=== PATIENT | male | born 1965 | race Two or more races ===

== ENCOUNTER 2021-02-13 11:54 | Inpatient (IN) | payer OTHER ==
[2021-02-13 13:59] VITALS: BMI 24.7
[2021-02-13] MEDS ORDERED: MAGNESIUM CITRATE 300 ML BOTTLE PO PRN (15:09)
[2021-02-13] MEDS ORDERED: IBUPROFEN 400 MG TABLET (FP) PO PRN (15:09)
[2021-02-13] MEDS ORDERED: NALOXONE HCL 0.4 MG/ML VIAL IM PRN (15:09)
[2021-02-13] MEDS ORDERED: MAG HYDROX/AL HYDROX/SIMETH 30 ML UNIT-DOSE CUP PO PRN (15:09)
[2021-02-13] MEDS ORDERED: cloNIDine HCL 0.1 MG TABLET PO PRN (15:09)
[2021-02-13] MEDS ORDERED: METHOCARBAMOL 500 MG TABLET PO PRN (15:09)
[2021-02-13] MEDS ORDERED: MENTHOL/PHENOL 1 EACH UD MM PRN (15:09)
[2021-02-13] MEDS ORDERED: MAGNESIUM HYDROX 2400MG/30ML ORAL SUSPENSION 30 ML CUP PO PRN (15:09)
[2021-02-13] MEDS ORDERED: BISMUTH SUBSALICYLATE 524 MG/30 ML PO PRN (15:09)
[2021-02-13] MEDS ORDERED: ACETAMINOPHEN 325 MG TABLET (FP) PO PRN ×2 (15:09)
[2021-02-13] MEDS ORDERED: METHADONE HCL 10 MG TABLET (FOR DETOX USE ONLY) PO ONE (15:30)
[2021-02-13] MEDS: THIAMINE HCL 100 MG TABLET (FP) PO SCH (22:24)
[2021-02-13] MEDS: levETIRAcetam 500 MG TABLET (FP) PO SCH (22:24)
[2021-02-13] MEDS: MELATONIN 5 MG TABLETS PO SCH (22:24)
[2021-02-14] MEDS ORDERED: METHADONE HCL 10 MG TABLET (FOR DETOX USE ONLY) ONE (09:23)
[2021-02-14] MEDS ORDERED: METHADONE HCL 5 MG TABLET (FOR DETOX USE ONLY) ONE (09:23)
[2021-02-14] MEDS ORDERED: METHADONE (DETOX) 20 MG, METHADONE (DETOX) 5 MG PO ONE (10:00)
[2021-02-14 10:07] LABS: HEMATOCRIT 35.5 % (35.4-49); HEMOGLOBIN 11.5 GM/dL (11.7-16.9); MCH 29.6 pg (25.7-33.7); MCHC 32.4 g/dl (32.0-35.9); MEAN CELL VOLUME 91.3 fl (80-96); MEAN PLT VOLUME 8.3 fl (7.5-11.1); PLATELET COUNT 336 K/MM3 (134-434); RBC 3.89 M/mm3 (4.00-5.60); RDW 14.9 % (11.9-15.9); WHITE BLOOD COUNT 6.8 K/mm3 (4.0-10.0)
[2021-02-14] MEDS: PRENATAL VITAMINS W/ FOLIC ACID TABLET (FP) PO SCH (10:08)
[2021-02-14] MEDS: levETIRAcetam 500 MG TABLET (FP) PO SCH ×2 (10:08→22:16)
[2021-02-14 10:53] LABS: CALCIUM 8.8 mg/dL (8.5-10.1)
[2021-02-14 10:54] LABS: ALBUMIN 2.9 g/dl (3.4-5.0); BLOOD UREA NITROGEN 34.9 mg/dL (7-18)
[2021-02-14 10:57] LABS: CREATININE 1.7 mg/dL (0.55-1.3)
[2021-02-14 10:58] LABS: BILIRUBIN,TOTAL 0.3 mg/dL (0.2-1)
[2021-02-14 11:02] LABS: TOT PROT 6.2 g/dl (6.4-8.2)
[2021-02-14] MEDS: THIAMINE HCL 100 MG TABLET (FP) PO SCH (22:16)
[2021-02-14] MEDS: MELATONIN 5 MG TABLETS PO SCH (22:17)
[2021-02-15] MEDS ORDERED: METHADONE HCL 10 MG TABLET (FOR DETOX USE ONLY) PO ONE (10:00)
[2021-02-15] MEDS: levETIRAcetam 500 MG TABLET (FP) PO SCH ×2 (10:06→21:46)
[2021-02-15] MEDS: PRENATAL VITAMINS W/ FOLIC ACID TABLET (FP) PO SCH (10:06)
[2021-02-15 11:39] LABS: ALBUMIN 3.3 g/dl (3.4-5.0); BILIRUBIN,DIRECT 0.1 mg/dL (0.0-0.2)
[2021-02-15 11:43] LABS: TOT PROT 7.1 g/dl (6.4-8.2)
[2021-02-15 11:45] LABS: BILIRUBIN,TOTAL 0.3 mg/dL (0.2-1)
[2021-02-15] MEDS: MELATONIN 5 MG TABLETS PO SCH (21:46)
[2021-02-15] MEDS: THIAMINE HCL 100 MG TABLET (FP) PO SCH (21:46)
[2021-02-16] MEDS ORDERED: METHADONE HCL 5 MG TABLET (FOR DETOX USE ONLY) ONE (09:12)
[2021-02-16] MEDS ORDERED: METHADONE HCL 10 MG TABLET (FOR DETOX USE ONLY) ONE (09:13)
[2021-02-16] MEDS ORDERED: METHADONE (DETOX) 10 MG, METHADONE (DETOX) 5 MG PO ONE (10:00)
[2021-02-16] MEDS: PRENATAL VITAMINS W/ FOLIC ACID TABLET (FP) PO SCH (10:10)
[2021-02-16] MEDS: levETIRAcetam 500 MG TABLET (FP) PO SCH ×2 (10:11→22:06)
[2021-02-16] MEDS: THIAMINE HCL 100 MG TABLET (FP) PO SCH (22:06)
[2021-02-16] MEDS: MELATONIN 5 MG TABLETS PO SCH (22:07)
[2021-02-17] MEDS ORDERED: METHADONE HCL 10 MG TABLET (FOR DETOX USE ONLY) PO ONE (10:00)
[2021-02-17] MEDS: levETIRAcetam 500 MG TABLET (FP) PO SCH ×2 (10:01→21:46)
[2021-02-17] MEDS: PRENATAL VITAMINS W/ FOLIC ACID TABLET (FP) PO SCH (10:01)
[2021-02-17] MEDS ORDERED: MASKS NR ONE (18:40)
[2021-02-17] MEDS: THIAMINE HCL 100 MG TABLET (FP) PO SCH (21:46)
[2021-02-17] MEDS: MELATONIN 5 MG TABLETS PO SCH (21:46)
[2021-02-18] MEDS ORDERED: METHADONE HCL 5 MG TABLET (FOR DETOX USE ONLY) PO ONE (06:00)
[2021-02-18] MEDS: PRENATAL VITAMINS W/ FOLIC ACID TABLET (FP) PO SCH (09:00)
[2021-02-18] MEDS: levETIRAcetam 500 MG TABLET (FP) PO SCH (09:00)
[2021-02-18 09:08] VITALS: BP 135/71; PULSE 88; TEMP 97.1
== END 2021-02-18 08:58 | disposition home or self-care (01) | DRG 773 ==
LOC: YASAS 11:54 → Y6N 15:16
PROVIDERS: ADMIT Allergy & Immunology; ATTEND Allergy & Immunology
PROC: HZ2ZZZZ Detoxification Services for Substance Abuse Treatment (ICD-10-PCS; principal; 2021-02-13)
DX: F11.23 Opioid dependence with withdrawal (principal); G40.909 Epilepsy, unspecified, not intractable, without status epilepticus; Z87.891 Personal history of nicotine dependence; Z88.0 Allergy status to penicillin
CPT/HCPCS: 36415; 71045-TC-FY; 80053; 80076; 80177; 85027; 86780; 93005; 93010; C9803; J0735; U0003; U0005

== ENCOUNTER 2021-06-17 18:19 | Inpatient (IN) | payer OTHER ==
[2021-06-18 02:02] VITALS: BMI 24.3
[2021-06-18] MEDS ORDERED: NALOXONE HCL 0.4 MG/ML VIAL IM PRN (02:09)
[2021-06-18] MEDS ORDERED: IBUPROFEN 400 MG TABLET (FP) PO PRN (02:09)
[2021-06-18] MEDS ORDERED: MENTHOL/PHENOL 1 EACH UD MM PRN (02:09)
[2021-06-18] MEDS ORDERED: methaDONE HCL 10 MG TABLET (FOR DETOX USE ONLY) PO ONE ×2 (02:09→10:00)
[2021-06-18] MEDS ORDERED: MAGNESIUM HYDROX 2400MG/30ML ORAL SUSPENSION 30 ML CUP PO PRN (02:09)
[2021-06-18] MEDS ORDERED: BISMUTH SUBSALICYLATE 524 MG/30 ML PO PRN (02:09)
[2021-06-18] MEDS ORDERED: MAG HYDROX/AL HYDROX/SIMETH 30 ML UNIT-DOSE CUP PO PRN (02:09)
[2021-06-18] MEDS ORDERED: ACETAMINOPHEN 325 MG TABLET (FP) PO PRN ×2 (02:09)
[2021-06-18] MEDS ORDERED: MAGNESIUM CITRATE 300 ML BOTTLE PO PRN (02:09)
[2021-06-18] MEDS ORDERED: P-EPHED 60MG/TRIPROLIDI 2.5MG TABLET PO PRN (02:09)
[2021-06-18] MEDS ORDERED: NALOXONE (NARCAN) HCL 4 MG/0.1 ML SPRAY NS PRN (02:09)
[2021-06-18] MEDS ORDERED: guaiFENesin 200 MG/10 ML 10 ML UNIT-DOSE CUPS PO PRN (02:09)
[2021-06-18] MEDS ORDERED: cloNIDine HCL 0.1 MG TABLET PO PRN (02:09)
[2021-06-18] MEDS ORDERED: methaDONE HCL 10 MG TABLET (FOR DETOX USE ONLY) ONE ×2 (05:01→10:53)
[2021-06-18] MEDS: PRENATAL VITAMINS W/ FOLIC ACID TABLET (FP) PO SCH (10:57)
[2021-06-18] MEDS: MELATONIN 5 MG TABLETS PO SCH (22:51)
[2021-06-18] MEDS: THIAMINE HCL 100 MG TABLET (FP) PO SCH (22:51)
[2021-06-19] MEDS ORDERED: methaDONE HCL 10 MG TABLET (FOR DETOX USE ONLY) ONE (09:42)
[2021-06-19 10:32] LABS: ALBUMIN 2.8 g/dl (3.4-5.0); HEMATOCRIT 34.9 % (35.4-49); HEMOGLOBIN 11.4 GM/dL (11.7-16.9); MCH 29.5 pg (25.7-33.7); MCHC 32.7 g/dl (32.0-35.9); MEAN CELL VOLUME 90.2 fl (80-96); MEAN PLT VOLUME 8.4 fl (7.5-11.1); PLATELET COUNT 334 10^3/uL (134-434); RBC 3.87 M/mm3 (4.00-5.60); RDW 15.4 % (11.9-15.9); WHITE BLOOD COUNT 5.3 K/mm3 (4.0-10.0)
[2021-06-19 10:33] LABS: BLOOD UREA NITROGEN 32.4 mg/dL (7-18); CALCIUM 8.7 mg/dL (8.5-10.1)
[2021-06-19 10:37] LABS: CREATININE 1.3 mg/dL (0.55-1.3)
[2021-06-19 10:38] LABS: BILIRUBIN,TOTAL 0.5 mg/dL (0.2-1); TOT PROT 6.3 g/dl (6.4-8.2)
[2021-06-19] MEDS: PRENATAL VITAMINS W/ FOLIC ACID TABLET (FP) PO SCH (10:55)
[2021-06-19] MEDS: THIAMINE HCL 100 MG TABLET (FP) PO SCH (22:06)
[2021-06-19] MEDS: MELATONIN 5 MG TABLETS PO SCH (22:06)
[2021-06-20] MEDS ORDERED: methaDONE HCL 10 MG TABLET (FOR DETOX USE ONLY) PO ONE (10:00)
[2021-06-20] MEDS: PRENATAL VITAMINS W/ FOLIC ACID TABLET (FP) PO SCH (10:07)
[2021-06-20] MEDS: METHOCARBAMOL 500 MG TABLET PO PRN (10:07)
[2021-06-20] MEDS: CARBAMIDE PEROXIDE 6.5% OTIC 15 ML BOTTLE AU SCH ×2 (15:55→23:51)
[2021-06-20] MEDS: THIAMINE HCL 100 MG TABLET (FP) PO SCH (22:38)
[2021-06-20] MEDS: levETIRAcetam 500 MG TABLET (FP) PO SCH (22:38)
[2021-06-20] MEDS: MELATONIN 5 MG TABLETS PO SCH (22:38)
[2021-06-21] MEDS: METHOCARBAMOL 500 MG TABLET PO PRN ×2 (00:43→10:22)
[2021-06-21] MEDS ORDERED: methaDONE HCL 10 MG TABLET (FOR DETOX USE ONLY) ONE (10:04)
[2021-06-21] MEDS: PRENATAL VITAMINS W/ FOLIC ACID TABLET (FP) PO SCH (10:22)
[2021-06-21] MEDS: CARBAMIDE PEROXIDE 6.5% OTIC 15 ML BOTTLE AU SCH ×2 (10:22→23:25)
[2021-06-21] MEDS: levETIRAcetam 500 MG TABLET (FP) PO SCH ×2 (10:23→23:25)
[2021-06-21] MEDS: MELATONIN 5 MG TABLETS PO SCH (23:26)
[2021-06-21] MEDS: THIAMINE HCL 100 MG TABLET (FP) PO SCH (23:26)
[2021-06-22] MEDS ORDERED: methaDONE HCL 10 MG TABLET (FOR DETOX USE ONLY) PO ONE (10:00)
[2021-06-22] MEDS: METHOCARBAMOL 500 MG TABLET PO PRN (10:28)
[2021-06-22] MEDS: levETIRAcetam 500 MG TABLET (FP) PO SCH (10:28)
[2021-06-22] MEDS: PRENATAL VITAMINS W/ FOLIC ACID TABLET (FP) PO SCH (10:29)
[2021-06-22] MEDS: CARBAMIDE PEROXIDE 6.5% OTIC 15 ML BOTTLE AU SCH (10:31)
[2021-06-22 13:41] VITALS: BP 130/81; PULSE 66; TEMP 97.1
== END 2021-06-22 13:30 | disposition left against medical advice (07) | DRG 770 ==
LOC: YASAS 18:19 → Y3N 06-18 11:50
PROVIDERS: ADMIT Allergy & Immunology; ATTEND Allergy & Immunology
PROC: HZ2ZZZZ Detoxification Services for Substance Abuse Treatment (ICD-10-PCS; principal; 2021-06-18)
DX: F11.23 Opioid dependence with withdrawal (principal); F10.20 Alcohol dependence, uncomplicated; F14.20 Cocaine dependence, uncomplicated; F12.20 Cannabis dependence, uncomplicated; F17.210 Nicotine dependence, cigarettes, uncomplicated; F19.24 Other psychoactive substance dependence with psychoactive substance-induced mood disorder; G40.909 Epilepsy, unspecified, not intractable, without status epilepticus; H91.90 Unspecified hearing loss, unspecified ear; M54.89 Other dorsalgia; G89.29 Other chronic pain; Z56.0 Unemployment, unspecified; Z59.00 Homelessness unspecified; Z88.0 Allergy status to penicillin
CPT/HCPCS: 36415; 80053; 80177; 84132; 85027; 86780; C9803; U0003; U0005

== ENCOUNTER 2022-02-04 08:43 | Inpatient (IN) | payer OTHER ==
[2022-02-03 21:12] VITALS: BMI 24.7
[~2022-02-04 08:43] MED LIST: ACETAMINOPHEN 325 MG TABLET (FP) PO PRN; BENZOCAINE/MENTHOL (CHLORASEPTIC ) LOZENGE MM PRN; BISMUTH SUBSALICYLATE 524 MG/30 ML PO PRN; DICYCLOMINE HCL 10 MG CAPSULE PO PRN; LOPERAMIDE HCL 2 MG CAPSULE PO PRN; MAGNESIUM CITRATE 300 ML BOTTLE PO PRN; MAGNESIUM HYDROX 2400MG/30ML ORAL SUSPENSION 30 ML CUP PO PRN; NICOTINE 10 MG CARTRIDGE (INHALER) IH PRN; NICOTINE POLACRILEX 2 MG GUM BUC PRN; ONDANSETRON *ODT* 4 MG TABLET SL PRN
[2022-02-04] MEDS ORDERED: methaDONE HCL 10 MG TABLET (FOR DETOX USE ONLY) PO ONE (10:30)
[2022-02-04] MEDS: levETIRAcetam 500 MG TABLET (FP) PO SCH ×2 (11:52→22:13)
[2022-02-04] MEDS: PRENATAL VITAMINS W/ FOLIC ACID TABLET (FP) PO SCH (11:53)
[2022-02-04 13:44] LABS: HEMATOCRIT 30.3 % (35.4-49); HEMOGLOBIN 9.9 GM/dL (11.7-16.9); MCH 29.2 pg (25.7-33.7); MCHC 32.7 g/dl (32.0-35.9); MEAN CELL VOLUME 89.4 fl (80-96); MEAN PLT VOLUME 8.4 fl (7.5-11.1); PLATELET COUNT 332 10^3/uL (134-434); RBC 3.39 M/mm3 (4.00-5.60); RDW 16.4 % (11.9-15.9); WHITE BLOOD COUNT 4.7 K/mm3 (4.0-10.0)
[2022-02-04 13:55] LABS: CALCIUM 8.8 mg/dL (8.5-10.1)
[2022-02-04 13:59] LABS: CREATININE 2.6 mg/dL (0.55-1.3)
[2022-02-04 14:01] LABS: TOT PROT 6.1 g/dl (6.4-8.2)
[2022-02-04 14:11] LABS: BILIRUBIN,TOTAL 1.1 mg/dL (0.2-1)
[2022-02-04 15:19] LABS: BLOOD UREA NITROGEN 51.3 mg/dL (7-18)
[2022-02-04] MEDS: THIAMINE HCL 100 MG TABLET (FP) PO SCH (22:12)
[2022-02-04] MEDS: MELATONIN 5 MG TABLETS PO PRN (22:12)
[2022-02-04] MEDS: hydrOXYzine PAMOATE 25 MG CAPSULE (FP) PO PRN (22:12)
[2022-02-04] MEDS: ACETAMINOPHEN 325 MG TABLET (FP) PO PRN (22:14)
[2022-02-05] MEDS ORDERED: methaDONE HCL 10 MG TABLET (FOR DETOX USE ONLY) ONE (08:41)
[2022-02-05] MEDS: PRENATAL VITAMINS W/ FOLIC ACID TABLET (FP) PO SCH (10:16)
[2022-02-05] MEDS: levETIRAcetam 500 MG TABLET (FP) PO SCH ×2 (11:06→22:36)
[2022-02-05] MEDS: THIAMINE HCL 100 MG TABLET (FP) PO SCH (22:35)
[2022-02-05] MEDS: MELATONIN 5 MG TABLETS PO PRN (22:35)
[2022-02-05] MEDS: MAG HYDROX/AL HYDROX/SIMETH 30 ML UNIT-DOSE CUP PO PRN (22:37)
[2022-02-05] MEDS: METHOCARBAMOL 500 MG TABLET PO PRN (22:37)
[2022-02-06] MEDS ORDERED: methaDONE HCL 10 MG TABLET (FOR DETOX USE ONLY) PO ONE (10:00)
[2022-02-06] MEDS: hydrOXYzine PAMOATE 25 MG CAPSULE (FP) PO PRN ×2 (10:20→17:56)
[2022-02-06] MEDS: METHOCARBAMOL 500 MG TABLET PO PRN ×2 (10:20→17:57)
[2022-02-06] MEDS: levETIRAcetam 500 MG TABLET (FP) PO SCH ×2 (10:21→22:46)
[2022-02-06] MEDS: PRENATAL VITAMINS W/ FOLIC ACID TABLET (FP) PO SCH (10:29)
[2022-02-06 11:50] LABS: BLOOD UREA NITROGEN 47.5 mg/dL (7-18)
[2022-02-06 16:08] LABS: SARS-CoV-2 NAA Not Detected (Not Detected)
[2022-02-06] MEDS: THIAMINE HCL 100 MG TABLET (FP) PO SCH (22:46)
[2022-02-07] MEDS ORDERED: methaDONE HCL 10 MG TABLET (FOR DETOX USE ONLY) ONE (09:25)
[2022-02-07] MEDS: PRENATAL VITAMINS W/ FOLIC ACID TABLET (FP) PO SCH (10:34)
[2022-02-07] MEDS: levETIRAcetam 500 MG TABLET (FP) PO SCH ×2 (10:34→22:25)
[2022-02-07] MEDS: hydrOXYzine PAMOATE 25 MG CAPSULE (FP) PO PRN ×2 (10:34→22:25)
[2022-02-07] MEDS: METHOCARBAMOL 500 MG TABLET PO PRN ×2 (10:34→17:59)
[2022-02-07] MEDS: CLOTRIMAZOLE 1% CREAM TP SCH ×2 (13:20→22:32)
[2022-02-07] MEDS: MAG HYDROX/AL HYDROX/SIMETH 30 ML UNIT-DOSE CUP PO PRN (13:36)
[2022-02-07] MEDS: FERROUS SO4 325 MG TABLET (FP) PO SCH (17:59)
[2022-02-07] MEDS: THIAMINE HCL 100 MG TABLET (FP) PO SCH (22:25)
[2022-02-07] MEDS: MELATONIN 5 MG TABLETS PO PRN (22:25)
[2022-02-08] MEDS: hydrOXYzine PAMOATE 25 MG CAPSULE (FP) PO PRN ×3 (05:05→22:13)
[2022-02-08] MEDS: METHOCARBAMOL 500 MG TABLET PO PRN ×3 (05:06→17:40)
[2022-02-08] MEDS: ACETAMINOPHEN 325 MG TABLET (FP) PO PRN ×2 (05:07→20:59)
[2022-02-08] MEDS: FERROUS SO4 325 MG TABLET (FP) PO SCH ×3 (09:52→20:38)
[2022-02-08] MEDS ORDERED: methaDONE HCL 10 MG TABLET (FOR DETOX USE ONLY) PO ONE (10:00)
[2022-02-08] MEDS: levETIRAcetam 500 MG TABLET (FP) PO SCH ×2 (10:21→22:13)
[2022-02-08] MEDS: MULTIVITAMINS (DAILY MVI) TABLET (FP) PO SCH (10:22)
[2022-02-08] MEDS: CLOTRIMAZOLE 1% CREAM TP SCH ×2 (10:22→22:12)
[2022-02-08] MEDS: IBUPROFEN 400 MG TABLET (FP) PO PRN ×2 (13:11→22:13)
[2022-02-08] MEDS: MELATONIN 5 MG TABLETS PO PRN (22:12)
[2022-02-08] MEDS: THIAMINE HCL 100 MG TABLET (FP) PO SCH (23:41)
[2022-02-09] MEDS: IBUPROFEN 400 MG TABLET (FP) PO PRN (05:18)
[2022-02-09] MEDS: METHOCARBAMOL 500 MG TABLET PO PRN (05:18)
[2022-02-09] MEDS: hydrOXYzine PAMOATE 25 MG CAPSULE (FP) PO PRN (05:18)
[2022-02-09] MEDS: FERROUS SO4 325 MG TABLET (FP) PO SCH ×2 (07:26→13:21)
[2022-02-09] MEDS: ACETAMINOPHEN 325 MG TABLET (FP) PO PRN (09:06)
[2022-02-09] MEDS: levETIRAcetam 500 MG TABLET (FP) PO SCH (10:16)
[2022-02-09] MEDS: MULTIVITAMINS (DAILY MVI) TABLET (FP) PO SCH (10:16)
[2022-02-09] MEDS: CLOTRIMAZOLE 1% CREAM TP SCH (10:16)
[2022-02-09] MEDS ORDERED: LIDOCAINE 5% TOPICAL PATCH TP SCH (10:30)
[2022-02-09] MEDS ORDERED: amLODIPine BESYLATE 5 MG TABLET (FP) PO SCH (10:30)
[2022-02-09 13:02] VITALS: BP 149/96; PULSE 78; TEMP 97
[2022-02-09] MEDS ORDERED: LIDOCAINE PATCH REMOVAL MC SCH (22:00)
== END 2022-02-09 14:20 | disposition other institution (70) | DRG 773 ==
LOC: YASAS 08:43 → UNDOADMIN 09:50 → Y6N 09:50
PROVIDERS: ADMIT Allergy & Immunology; ATTEND Psychiatry & Neurology Psychiatry
PROC: HZ2ZZZZ Detoxification Services for Substance Abuse Treatment (ICD-10-PCS; principal; 2022-02-04)
DX: F11.23 Opioid dependence with withdrawal (principal); F14.20 Cocaine dependence, uncomplicated; F12.20 Cannabis dependence, uncomplicated; F19.24 Other psychoactive substance dependence with psychoactive substance-induced mood disorder; D50.9 Iron deficiency anemia, unspecified; G40.909 Epilepsy, unspecified, not intractable, without status epilepticus; I10 Essential (primary) hypertension; N28.9 Disorder of kidney and ureter, unspecified; M54.50 Low back pain, unspecified; G89.29 Other chronic pain; H90.0 Conductive hearing loss, bilateral; Z87.891 Personal history of nicotine dependence; Z88.0 Allergy status to penicillin
CPT/HCPCS: 36415; 80053; 80177; 82565; 82607; 82746; 83540; 83550; 84520; 85027; 86780; 87811; C9803-CS; U0003; U0005

== ENCOUNTER 2022-02-09 14:27 | Inpatient (IN) | payer OTHER ==
[2022-02-09] MEDS ORDERED: MAG HYDROX/AL HYDROX/SIMETH 30 ML UNIT-DOSE CUP PO PRN (15:08)
[2022-02-09] MEDS ORDERED: MAGNESIUM CITRATE 300 ML BOTTLE PO PRN (15:08)
[2022-02-09] MEDS ORDERED: guaiFENesin 200 MG/10 ML 10 ML UNIT-DOSE CUPS PO PRN (15:08)
[2022-02-09] MEDS ORDERED: hydrOXYzine PAMOATE 25 MG CAPSULE (FP) PO PRN (15:08)
[2022-02-09] MEDS ORDERED: MAGNESIUM HYDROX 2400MG/30ML ORAL SUSPENSION 30 ML CUP PO PRN (15:08)
[2022-02-09] MEDS ORDERED: LOPERAMIDE HCL 2 MG CAPSULE PO PRN (15:08)
[2022-02-09] MEDS ORDERED: P-EPHED 60MG/TRIPROLIDI 2.5MG TABLET PO PRN (15:08)
[2022-02-09] MEDS ORDERED: BENZOCAINE/MENTHOL (CHLORASEPTIC ) LOZENGE MM PRN (15:08)
[2022-02-09] MEDS ORDERED: NICOTINE 10 MG CARTRIDGE (INHALER) IH PRN (15:08)
[2022-02-09] MEDS: IBUPROFEN 400 MG TABLET (FP) PO PRN (15:40)
[2022-02-09] MEDS ORDERED: cloNIDine HCL 0.1 MG TABLET PO PRN (15:56)
[2022-02-09] MEDS ORDERED: METHOCARBAMOL 500 MG TABLET PO PRN (15:58)
[2022-02-09] MEDS ORDERED: cloNIDine HCL 0.1 MG TABLET PO ONE (16:00)
[2022-02-09] MEDS: levETIRAcetam 250 MG TABLET PO SCH (21:38)
[2022-02-09] MEDS: MELATONIN 5 MG TABLETS PO SCH (21:39)
[2022-02-09] MEDS: THIAMINE HCL 100 MG TABLET (FP) PO SCH (21:39)
[2022-02-10] MEDS: IBUPROFEN 400 MG TABLET (FP) PO PRN ×2 (01:27→20:30)
[2022-02-10] MEDS: ACETAMINOPHEN 325 MG TABLET (FP) PO PRN (06:04)
[2022-02-10] MEDS: PRENATAL VITAMINS W/ FOLIC ACID TABLET (FP) PO SCH (10:06)
[2022-02-10] MEDS: levETIRAcetam 250 MG TABLET PO SCH ×2 (10:06→21:09)
[2022-02-10] MEDS: NICOTINE 7 MG/24 HOURS TOPICAL PATCH TD SCH (10:07)
[2022-02-10] MEDS: LIDOCAINE 5% TOPICAL PATCH TP SCH (15:17)
[2022-02-10] MEDS: METHOCARBAMOL 750 MG TAB PO PRN (21:09)
[2022-02-10] MEDS: THIAMINE HCL 100 MG TABLET (FP) PO SCH (21:09)
[2022-02-10] MEDS: MELATONIN 5 MG TABLETS PO SCH (21:09)
[2022-02-10] MEDS: LIDOCAINE PATCH REMOVAL MC SCH (21:10)
[2022-02-10] MEDS: METHYL SALICYLATE/MENTHOL OINT 30 GM TUBE TP SCH (21:10)
[2022-02-11] MEDS: IBUPROFEN 400 MG TABLET (FP) PO PRN ×2 (03:36→21:17)
[2022-02-11] MEDS: PRENATAL VITAMINS W/ FOLIC ACID TABLET (FP) PO SCH (10:05)
[2022-02-11] MEDS: ACETAMINOPHEN 325 MG TABLET (FP) PO PRN (10:06)
[2022-02-11] MEDS: NICOTINE 7 MG/24 HOURS TOPICAL PATCH TD SCH (10:06)
[2022-02-11] MEDS: levETIRAcetam 250 MG TABLET PO SCH ×2 (10:06→21:16)
[2022-02-11] MEDS: LIDOCAINE 5% TOPICAL PATCH TP SCH (10:06)
[2022-02-11] MEDS: MELATONIN 5 MG TABLETS PO SCH (21:16)
[2022-02-11] MEDS: THIAMINE HCL 100 MG TABLET (FP) PO SCH (21:16)
[2022-02-12] MEDS: METHYL SALICYLATE/MENTHOL OINT 30 GM TUBE TP SCH ×2 (00:02→21:15)
[2022-02-12] MEDS: LIDOCAINE PATCH REMOVAL MC SCH ×2 (00:02→21:15)
[2022-02-12] MEDS: LIDOCAINE 5% TOPICAL PATCH TP SCH (10:09)
[2022-02-12] MEDS: levETIRAcetam 250 MG TABLET PO SCH ×2 (10:09→21:14)
[2022-02-12] MEDS: NICOTINE 7 MG/24 HOURS TOPICAL PATCH TD SCH (10:09)
[2022-02-12] MEDS: PRENATAL VITAMINS W/ FOLIC ACID TABLET (FP) PO SCH (10:09)
[2022-02-12] MEDS: THIAMINE HCL 100 MG TABLET (FP) PO SCH (21:14)
[2022-02-12] MEDS: MELATONIN 5 MG TABLETS PO SCH (21:14)
[2022-02-13] MEDS: levETIRAcetam 250 MG TABLET PO SCH ×2 (10:13→21:27)
[2022-02-13] MEDS: PRENATAL VITAMINS W/ FOLIC ACID TABLET (FP) PO SCH (10:13)
[2022-02-13] MEDS: LIDOCAINE 5% TOPICAL PATCH TP SCH (10:14)
[2022-02-13] MEDS: NICOTINE 7 MG/24 HOURS TOPICAL PATCH TD SCH (10:14)
[2022-02-13] MEDS: METHYL SALICYLATE/MENTHOL OINT 30 GM TUBE TP SCH (21:26)
[2022-02-13] MEDS: MELATONIN 5 MG TABLETS PO SCH (21:26)
[2022-02-13] MEDS: LIDOCAINE PATCH REMOVAL MC SCH (21:27)
[2022-02-13] MEDS: THIAMINE HCL 100 MG TABLET (FP) PO SCH (21:27)
[2022-02-13] MEDS: METHOCARBAMOL 750 MG TAB PO PRN (21:28)
[2022-02-14] MEDS: NICOTINE 7 MG/24 HOURS TOPICAL PATCH TD SCH (10:03)
[2022-02-14] MEDS: LIDOCAINE 5% TOPICAL PATCH TP SCH (10:03)
[2022-02-14] MEDS: levETIRAcetam 250 MG TABLET PO SCH ×2 (10:03→21:16)
[2022-02-14] MEDS: PRENATAL VITAMINS W/ FOLIC ACID TABLET (FP) PO SCH (10:03)
[2022-02-14] MEDS: LIDOCAINE PATCH REMOVAL MC SCH (21:16)
[2022-02-14] MEDS: THIAMINE HCL 100 MG TABLET (FP) PO SCH (21:16)
[2022-02-14] MEDS: MELATONIN 5 MG TABLETS PO SCH (21:16)
[2022-02-14] MEDS: METHYL SALICYLATE/MENTHOL OINT 30 GM TUBE TP SCH (21:16)
[2022-02-15] MEDS: LIDOCAINE 5% TOPICAL PATCH TP SCH (09:58)
[2022-02-15] MEDS: NICOTINE 7 MG/24 HOURS TOPICAL PATCH TD SCH (09:58)
[2022-02-15] MEDS: levETIRAcetam 250 MG TABLET PO SCH ×2 (09:58→21:28)
[2022-02-15] MEDS: PRENATAL VITAMINS W/ FOLIC ACID TABLET (FP) PO SCH (09:58)
[2022-02-15] MEDS: LIDOCAINE PATCH REMOVAL MC SCH (21:28)
[2022-02-15] MEDS: METHYL SALICYLATE/MENTHOL OINT 30 GM TUBE TP SCH (21:28)
[2022-02-15] MEDS: THIAMINE HCL 100 MG TABLET (FP) PO SCH (21:28)
[2022-02-15] MEDS: MELATONIN 5 MG TABLETS PO SCH (21:29)
[2022-02-16] MEDS: PRENATAL VITAMINS W/ FOLIC ACID TABLET (FP) PO SCH (10:23)
[2022-02-16] MEDS: LIDOCAINE 5% TOPICAL PATCH TP SCH (10:23)
[2022-02-16] MEDS: levETIRAcetam 250 MG TABLET PO SCH ×2 (10:23→21:38)
[2022-02-16] MEDS: NICOTINE 7 MG/24 HOURS TOPICAL PATCH TD SCH (10:24)
[2022-02-16] MEDS: MELATONIN 5 MG TABLETS PO SCH (21:38)
[2022-02-16] MEDS: THIAMINE HCL 100 MG TABLET (FP) PO SCH (21:38)
[2022-02-16] MEDS: METHYL SALICYLATE/MENTHOL OINT 30 GM TUBE TP SCH (21:38)
[2022-02-16] MEDS: LIDOCAINE PATCH REMOVAL MC SCH (21:38)
[2022-02-17] MEDS: PRENATAL VITAMINS W/ FOLIC ACID TABLET (FP) PO SCH (10:00)
[2022-02-17] MEDS: levETIRAcetam 250 MG TABLET PO SCH ×2 (10:00→21:28)
[2022-02-17] MEDS: LIDOCAINE 5% TOPICAL PATCH TP SCH (10:23)
[2022-02-17] MEDS: NICOTINE 7 MG/24 HOURS TOPICAL PATCH TD SCH (10:23)
[2022-02-17] MEDS: MELATONIN 5 MG TABLETS PO SCH (21:28)
[2022-02-17] MEDS: THIAMINE HCL 100 MG TABLET (FP) PO SCH (21:28)
[2022-02-17] MEDS: LIDOCAINE PATCH REMOVAL MC SCH (21:29)
[2022-02-17] MEDS: METHYL SALICYLATE/MENTHOL OINT 30 GM TUBE TP SCH (21:29)
[2022-02-18] MEDS: levETIRAcetam 250 MG TABLET PO SCH ×2 (10:00→21:21)
[2022-02-18] MEDS: PRENATAL VITAMINS W/ FOLIC ACID TABLET (FP) PO SCH (10:00)
[2022-02-18] MEDS: LIDOCAINE 5% TOPICAL PATCH TP SCH (10:01)
[2022-02-18] MEDS: NICOTINE 7 MG/24 HOURS TOPICAL PATCH TD SCH (10:01)
[2022-02-18] MEDS: LIDOCAINE PATCH REMOVAL MC SCH (21:21)
[2022-02-18] MEDS: MELATONIN 5 MG TABLETS PO SCH (21:21)
[2022-02-18] MEDS: METHYL SALICYLATE/MENTHOL OINT 30 GM TUBE TP SCH (21:21)
[2022-02-18] MEDS: THIAMINE HCL 100 MG TABLET (FP) PO SCH (21:21)
[2022-02-19] MEDS: levETIRAcetam 250 MG TABLET PO SCH ×2 (10:01→21:29)
[2022-02-19] MEDS: LIDOCAINE 5% TOPICAL PATCH TP SCH (10:01)
[2022-02-19] MEDS: PRENATAL VITAMINS W/ FOLIC ACID TABLET (FP) PO SCH (10:01)
[2022-02-19] MEDS: NICOTINE 7 MG/24 HOURS TOPICAL PATCH TD SCH (10:02)
[2022-02-19] MEDS: THIAMINE HCL 100 MG TABLET (FP) PO SCH (21:29)
[2022-02-19] MEDS: METHOCARBAMOL 750 MG TAB PO PRN (21:30)
[2022-02-19] MEDS: METHYL SALICYLATE/MENTHOL OINT 30 GM TUBE TP SCH (21:30)
[2022-02-19] MEDS: MELATONIN 5 MG TABLETS PO SCH (21:30)
[2022-02-19] MEDS: LIDOCAINE PATCH REMOVAL MC SCH (21:30)
[2022-02-20 07:08] VITALS: BP 116/78; PULSE 84; TEMP 97.7
[2022-02-20] MEDS: NICOTINE 7 MG/24 HOURS TOPICAL PATCH TD SCH (10:22)
[2022-02-20] MEDS: levETIRAcetam 250 MG TABLET PO SCH (10:22)
[2022-02-20] MEDS: PRENATAL VITAMINS W/ FOLIC ACID TABLET (FP) PO SCH (10:22)
[2022-02-20] MEDS: LIDOCAINE 5% TOPICAL PATCH TP SCH (10:22)
== END 2022-02-20 11:00 | disposition home or self-care (01) | DRG 772 ==
LOC: YASAS 14:27 → Y5N 14:28
PROVIDERS: ADMIT Allergy & Immunology; ATTEND Psychiatry & Neurology Pain Medicine
PROC: HZ42ZZZ Group Counseling for Substance Abuse Treatment, Cognitive-Behavioral (ICD-10-PCS; principal; 2022-02-09)
DX: F11.20 Opioid dependence, uncomplicated (principal); F14.20 Cocaine dependence, uncomplicated; F12.20 Cannabis dependence, uncomplicated; D50.9 Iron deficiency anemia, unspecified; G40.909 Epilepsy, unspecified, not intractable, without status epilepticus; I10 Essential (primary) hypertension; N28.9 Disorder of kidney and ureter, unspecified; M54.50 Low back pain, unspecified; G89.29 Other chronic pain; H91.90 Unspecified hearing loss, unspecified ear; Z88.0 Allergy status to penicillin; Z87.891 Personal history of nicotine dependence
CPT/HCPCS: C9803-CS; J0735; U0003; U0005